=== PATIENT | male | born 1945 | race Asian ===

== ENCOUNTER 2019-05-03 06:24 | Day surgery (SDC) | payer OTHER ==
[~2019-05-03] VITALS: Ht 160 cm; Wt 69.5 kg
[~2019-05-03 06:24] MED LIST: SODIUM CHLORIDE 0.9% 1,000 ML IV ONE
[2019-05-03] MEDS ORDERED: LIDOCAINE 4% 50 ML SOLUTION TP ONE (06:25)
[2019-05-03] MEDS ORDERED: LIDOCAINE 2% 30 ML JELLY TP ONE (06:25)
[2019-05-03] MEDS ORDERED: ALBUTEROL SULFATE 2.5 MG/0.5 ML NEB SOLUTION NEB ONE (06:25)
[2019-05-03] MEDS ORDERED: BENZOCAINE 20% 50 MCG/SPRAY 57 GM TP ONE (06:25)
[2019-05-03] MEDS ORDERED: SODIUM CHLORIDE 0.9% 1,000 ML IV ONE (06:30)
[2019-05-03] MEDS ORDERED: MIDAZOLAM HCL 2 MG/2 ML VIAL ONE (08:14)
[2019-05-03] MEDS ORDERED: FentaNYL CITRATE-PF 100 MCG/2 ML VIAL ONE (08:15)
[2019-05-03] MEDS ORDERED: ATOR10TA84 PO (08:53)
[2019-05-03] MEDS ORDERED: FINA5TAB41 PO (08:53)
[2019-05-03] MEDS ORDERED: ALBU8HFA IH (08:53)
[2019-05-03] MEDS ORDERED: MONT10TA21 PO (08:53)
[2019-05-03] MEDS ORDERED: TAMS-1 PO (08:53)
[2019-05-03] MEDS ORDERED: MethylPREDNISolone SOD SUCC 125 MG/2 ML VIAL IVP ONE (09:00)
[2019-05-03] MEDS ORDERED: BUDE10.2 IH (09:02)
[2019-05-03] MEDS ORDERED: MethylPREDNISolone SOD SUCC 125 MG/2 ML VIAL ONE (09:03)
[2019-05-03] MEDS ORDERED: OXYGEN THERAPY IH SCH (20:00)
== END 2019-05-03 10:40 | disposition home or self-care (01) ==
LOC: SURGERY 06:24 → EDSEX 09:30 → SURGERY 10:40
PROVIDERS: ATTEND Internal Medicine Critical Care Medicine
DX: J38.4 Edema of larynx (principal); B37.0 Candidal stomatitis; E78.00 Pure hypercholesterolemia, unspecified
CPT/HCPCS: 31623; 31624; 71045; 87015; 87070; 87101; 87205; 87206; 87220; 88108; 88312; J2250; J2930; J3010; J7030

== ENCOUNTER 2023-05-30 05:52 | Day surgery (SDC) | payer OTHER ==
[~2023-05-30] VITALS: Ht 158.8 cm; Wt 66.3 kg
[~2023-05-30 05:52] MED LIST changes: +ALBU18HF12 IH; +ATOR10TA PO; +BUDE10.2 IH; +FINA-27 PO; +MONT-35 PO; -SODIUM CHLORIDE 0.9% 1,000 ML IV ONE; +TAMS-1 PO
[2023-05-30] MEDS ORDERED: SODIUM CHLORIDE 0.9% 1,000 ML IV ONE (07:00)
[2023-05-30] MEDS ORDERED: SODIUM CHLORIDE 0.9% 1,000 ML ONE (07:35)
[2023-05-30] MEDS ORDERED: FentaNYL CITRATE PF 100 MCG/2 ML VIAL ONE (07:54)
[2023-05-30] MEDS ORDERED: MIDAZOLAM HCL 2 MG/2 ML VIAL ONE (07:54)
[2023-05-30 09:10] VITALS: PULSE 64; RESP 18; O2SAT 96
[2023-05-30] MEDS ORDERED: MethylPREDNISolone SOD SUCC 125 MG/2 ML VIAL ONE (09:23)
[2023-05-30] MEDS ORDERED: MethylPREDNISolone SOD SUCC 125 MG/2 ML VIAL IVP ONE (09:30)
== END 2023-05-30 11:50 | disposition home or self-care (01) ==
LOC: SURGERY 05:52
PROVIDERS: ATTEND Internal Medicine Critical Care Medicine
DX: J38.4 Edema of larynx (principal); B37.0 Candidal stomatitis; Z98.49 Cataract extraction status, unspecified eye; J44.9 Chronic obstructive pulmonary disease, unspecified; Z79.899 Other long term (current) drug therapy; Z98.890 Other specified postprocedural states
CPT/HCPCS: 31623; 87206; 87101; 87220; 87070; 87186; 31624; 71045; 87015; J3010; J2250; J2930; J7030; 88112